=== PATIENT | female | born 1960 | race Caucasian/White ===

== ENCOUNTER 2025-08-12 11:53 | Inpatient (IN) | payer OTHER, MEDICAID ==
[~2025-08-12] VITALS: Ht 162.6 cm; Wt 54.4 kg
[2025-08-12 11:59] VITALS: O2SAT 97
[2025-08-12] MEDS: SODIUM CHLORIDE 0.9% (SEPSIS BOLUS) IV ONE (12:35)
[2025-08-12] MEDS: ONDANSETRON HCL 4MG/2ML INJ IV ONE (12:52)
[2025-08-12] MEDS: CEFTRIAXONE 1GM/50ML 50 ML IV ONE (12:52)
[2025-08-12 12:53] LABS: HEMATOCRIT. 35.7 % (36.0-48.0); HEMOGLOBIN. 11.6 g/dL (12.0-16.0); MEAN PLATELET VOLUME 7.2 fl (7.4-10.4); PLATELET 298 x1000/uL (130-400); RED BLOOD CELL COUNT 4.19 mill/uL (4.2-5.4); RED CELL DISTRIBUTION WIDTH 14.7 % (11.6-14.6)
[2025-08-12 13:10] LABS: TROPONIN I HIGH SENSITIVITY 5 ng/L (3.0-34)
[2025-08-12 13:12] LABS: CREATININE 0.7 mg/dL (0.6-1.0); UREA NITROGEN BLOOD 11 mg/dL (9-23)
[2025-08-12 13:14] LABS: ASPARTATE AMINOTRANSFERASE 44 IU/L (<34); BILIRUBIN DIRECT 0.2 mg/dL (<=3.0); BILIRUBIN TOTAL 1.0 mg/dL (0.1-1.0); PROTEIN TOTAL 7.3 g/dL (6.0-8.3)
[2025-08-12 13:27] LABS: INR 1.0
[2025-08-12] MEDS: ACETAMINOPHEN 325MG TABLET PO ONE (13:48)
[2025-08-12 13:53] LABS: BAND% 21.0 % (1.0-6.0); LYMPHOCYTES % MANUAL 5.0 % (20.0-60.0); MONOCYTES % MANUAL 4.0 % (2.0-8.0); NEUTROPHILS % MANUAL 70.0 % (45.0-75.0); PLATELET ESTIMATE NORMAL
[2025-08-12] MEDS ORDERED: DEXTROSE 50% WATER 50ML SYRINGE IV PRN (14:15)
[2025-08-12] MEDS ORDERED: ACETAMINOPHEN 325MG TABLET PO PRN ×2 (14:15)
[2025-08-12] MEDS ORDERED: IPRATROPIUM/ALBUTEROL 0.5-3(2.5)MG/3ML NEB HHN PRN (14:15)
[2025-08-12] MEDS ORDERED: ONDANSETRON HCL 4MG/2ML INJ IV PRN (14:15)
[2025-08-12] MEDS ORDERED: VANCOMYCIN 1.5GM PMX (XELLIA) 300 ML IV SCH (15:00)
[2025-08-12] MEDS ORDERED: LEVOFLOXACIN 750MG PREMIX 150 ML IV SCH (15:00)
[2025-08-12] MEDS ORDERED: MAGNESIUM 2 G PREMIX 50 ML IV SCH (15:00)
[2025-08-12] MEDS ORDERED: POTASSIUM CHLORIDE 20MEQ TABLET SR PO SCH (15:00)
[2025-08-12] MEDS ORDERED: MIDODRINE HCL 5MG TABLET PO SCH (15:30)
[2025-08-12] MEDS: SODIUM CHLORIDE 0.9% 1,000 ML IV ONE (15:30)
[2025-08-12] MEDS: SODIUM CHLORIDE 0.9% 1,000 ML IV SCH (15:34)
[2025-08-12] MEDS ORDERED: CEFEPIME 2GM IN DEXT 5% 100ML IV SCH (16:15)
[2025-08-12] MEDS ORDERED: AZITHROMYCIN 500MG/250ML 250 ML IV SCH (17:00)
[2025-08-12 17:27] LABS: CLARITY URINE CLEAR (CLEAR); COLOR URINE YELLOW (YELLOW); GLUCOSE URINE NEGATIVE (NEGATIVE); KETONES URINE NEGATIVE (NEGATIVE); LEUKOCYTE ESTERASE URINE 1+ (NEGATIVE); NITRITE URINE NEGATIVE (NEGATIVE); OCCULT BLOOD URINE NEGATIVE (NEGATIVE); PH URINE 5.5 (4.5-8.0); PROTEIN URINE NEGATIVE (NEGATIVE); SPECIFIC GRAVITY URINE 1.005 (1.005-1.030); UROBILINOGEN URINE 0.2 E.U./dL (0.2-1.0)
[2025-08-12 17:34] LABS: *AMPHETAMINES SCREEN URINE NEGATIVE (NEGATIVE); *BARBITURATES SCREEN URINE NEGATIVE (NEGATIVE); *BENZODIAZEPINES SCREEN URINE NEGATIVE (NEGATIVE); *COCAINE SCREEN URINE NEGATIVE (NEGATIVE); METHADONE URINE SCREEN NEGATIVE (NEGATIVE)
[2025-08-12 17:35] LABS: CANNABINOID URINE SCREEN NEGATIVE (NEGATIVE); ECSTASY MDMA SCREEN URINE NEGATIVE (NEGATIVE); OPIATES URINE SCREEN NEGATIVE (NEGATIVE); PHENCYCLIDINE URINE SCREEN NEGATIVE (NEGATIVE)
[2025-08-12 17:52] LABS: BACTERIA URINE NONE SEEN; RBC URINE NONE SEEN /hpf (0-2); SQUAMOUS EPITHELIAL CELL URINE NONE SEEN /lpf (RARE/1+)
[2025-08-12 18:20] VITALS: BP 94/54; PULSE 98; RESP 13; TEMP 36.1; O2SAT 96
[2025-08-12 20:00] VITALS: BP 101/61; PULSE 100; RESP 18; TEMP 36.9; TEMP 36.9184; O2SAT 99
[2025-08-12] MEDS: INSULIN LISPRO 100 UNITS/ML SUBCUT SCH (21:00)
[2025-08-12] MEDS: BLOOD SUGAR DIAGNOSTIC STRIP TEST SCH (21:00)
[2025-08-13] VITALS: BP 107/53; PULSE 95; RESP 20; TEMP 39.9; O2SAT 98
[2025-08-13] MEDS: CEFEPIME 2GM PREMIX 100ML IV SCH (02:13)
[2025-08-13] MEDS: VANCOMYCIN 500 MG in DEXT 5% WATER 100 ML IV SCH (02:14)
[2025-08-13 04:00] VITALS: BP 116/68; PULSE 84; RESP 18; TEMP 38.2; O2SAT 97
[2025-08-13 08:00] VITALS: BP 120/55; PULSE 90; RESP 18; TEMP 38; O2SAT 97
[2025-08-13] MEDS: PANTOPRAZOLE SODIUM 40 MG/VIAL IV SCH (09:00)
[2025-08-13] MEDS: VANCOMYCIN 500MG PREMIX 100 ML IV SCH (11:34)
[2025-08-13 12:00] VITALS: BP 106/50; PULSE 84; RESP 18; TEMP 37.5; O2SAT 97
[2025-08-13 13:22] LABS: HEMATOCRIT. 29.0 % (36.0-48.0); HEMOGLOBIN. 9.5 g/dL (12.0-16.0); MEAN PLATELET VOLUME 8.3 fl (7.4-10.4); PLATELET 244 x1000/uL (130-400); RED BLOOD CELL COUNT 3.41 mill/uL (4.2-5.4); RED CELL DISTRIBUTION WIDTH 15.1 % (11.6-14.6)
[2025-08-13 13:57] LABS: CREATININE 0.6 mg/dL (0.6-1.0)
[2025-08-13 13:58] LABS: LDL CHOLESTEROL 58 mg/dL (5-100); TRIGLYCERIDE 100 mg/dL (0-150); UREA NITROGEN BLOOD 8 mg/dL (9-23)
[2025-08-13 13:59] LABS: ASPARTATE AMINOTRANSFERASE 61 IU/L (<34); BILIRUBIN DIRECT 0.2 mg/dL (<=3.0); BILIRUBIN TOTAL 0.6 mg/dL (0.1-1.0)
[2025-08-13 14:00] LABS: T4 FREE 1.00 ng/dL (0.89-1.76)
[2025-08-13 14:40] LABS: PROTEIN TOTAL 5.3 g/dL (6.0-8.3)
[2025-08-13] MEDS: ENOXAPARIN 40MG/0.4ML SYR SUBCUT SCH (15:00)
[2025-08-13 15:27] LABS: BAND% 22.0 % (1.0-6.0); LYMPHOCYTES % MANUAL 2.0 % (20.0-60.0); MONOCYTES % MANUAL 2.0 % (2.0-8.0); NEUTROPHILS % MANUAL 74.0 % (45.0-75.0); PLATELET ESTIMATE NORMAL
[2025-08-13 16:00] VITALS: BP 107/54; PULSE 89; RESP 17; TEMP 37.2; O2SAT 100
[2025-08-13] MEDS: LEVOFLOXACIN 500MG PREMIX 100 ML IV SCH (17:51)
[2025-08-13 20:00] VITALS: BP 105/57; PULSE 91; RESP 18; TEMP 36.7; O2SAT 95
[2025-08-13] MEDS ORDERED: PIPERACILLIN/TAZO 3.375G/50ML 50 ML IV SCH (21:00)
[2025-08-14] VITALS: BP 95/56; PULSE 75; RESP 19; TEMP 36.7; O2SAT 98
[2025-08-14 04:00] VITALS: BP 118/64; PULSE 72; RESP 18; TEMP 36.6; O2SAT 97
[2025-08-14 08:08] VITALS: BP 122/76; PULSE 74; RESP 18; TEMP 37; O2SAT 97
[2025-08-14 09:06] LABS: INFLUENZA TYPE A Presumptive Negative (Pres. Neg.)
[2025-08-14 09:07] LABS: INFLUENZA TYPE B Presumptive Negative (Pres. Neg.); RESPIRATORY SYNCYTIAL VIRUS Not Detected (Not Detectd)
[2025-08-14 10:00] LABS: BASOPHILS % 0.2 % (0.0-2.0); EOSINOPHILS % 0.3 % (0.0-5.0); HEMATOCRIT. 30.1 % (36.0-48.0); HEMOGLOBIN. 9.7 g/dL (12.0-16.0); LYMPHOCYTES % 7.1 % (20.0-50.0); MEAN PLATELET VOLUME 8.2 fl (7.4-10.4); MONOCYTES % 4.6 % (2.0-8.0); NEUTROPHILS % 87.8 % (40.0-76.0); PLATELET 213 x1000/uL (130-400); RED BLOOD CELL COUNT 3.53 mill/uL (4.2-5.4); RED CELL DISTRIBUTION WIDTH 15.3 % (11.6-14.6)
[2025-08-14 10:24] LABS: CREATININE 0.6 mg/dL (0.6-1.0)
[2025-08-14 10:25] LABS: UREA NITROGEN BLOOD 6 mg/dL (9-23)
[2025-08-14 12:10] VITALS: BP 108/48; PULSE 70; RESP 18; TEMP 36.3; O2SAT 96
[2025-08-14] MEDS: POTASSIUM CHLORIDE 20MEQ TABLET SR PO SCH (14:11)
[2025-08-14 15:59] VITALS: BP 132/72; PULSE 72; RESP 16; TEMP 36.3; O2SAT 98
[2025-08-14 20:00] VITALS: BP 116/70; PULSE 78; RESP 16; TEMP 36.4; O2SAT 96
[2025-08-14] MEDS: CLINDAMYCIN 600MG PREMIX 50 ML IV SCH (20:02)
[2025-08-15] VITALS: BP 128/63; PULSE 65; RESP 16; TEMP 36.2; O2SAT 97
[2025-08-15 04:00] VITALS: BP 137/65; PULSE 72; RESP 16; TEMP 37.1; O2SAT 96
[2025-08-15 09:43] LABS: BASOPHILS % 0.4 % (0.0-2.0); EOSINOPHILS % 1.2 % (0.0-5.0); HEMATOCRIT. 29.5 % (36.0-48.0); HEMOGLOBIN. 10.1 g/dL (12.0-16.0); LYMPHOCYTES % 13.3 % (20.0-50.0); MEAN PLATELET VOLUME 8.3 fl (7.4-10.4); MONOCYTES % 6.1 % (2.0-8.0); NEUTROPHILS % 79.0 % (40.0-76.0); PLATELET 236 x1000/uL (130-400); RED BLOOD CELL COUNT 3.52 mill/uL (4.2-5.4); RED CELL DISTRIBUTION WIDTH 15.5 % (11.6-14.6)
[2025-08-15 09:59] LABS: CREATININE 0.5 mg/dL (0.6-1.0); UREA NITROGEN BLOOD < 5 mg/dL (9-23)
[2025-08-15 12:10] VITALS: BP 144/84; PULSE 96; RESP 18; TEMP 37.3; O2SAT 100
[2025-08-15 13:29] VITALS: BP 138/86; PULSE 82; RESP 18; TEMP 36.4; O2SAT 98
[2025-08-15 16:06] VITALS: BP 122/56; PULSE 62; RESP 18; TEMP 36.9; O2SAT 99
[2025-08-15] MEDS: CEFTRIAXONE 2GM/50ML 50 ML IV SCH (17:02)
[2025-08-15 20:00] VITALS: BP 108/72; PULSE 67; RESP 18; TEMP 36.4; O2SAT 99
[2025-08-16] VITALS: BP 121/55; PULSE 61; RESP 18; TEMP 36.2; O2SAT 97
[2025-08-16 04:00] VITALS: BP 137/61; PULSE 63; RESP 18; TEMP 36.8; O2SAT 97
[2025-08-16 08:00] VITALS: BP 120/75; PULSE 70; RESP 18; TEMP 36.6; O2SAT 98
[2025-08-16 12:00] VITALS: BP 115/69; PULSE 62; RESP 18; TEMP 36.6; O2SAT 97
[2025-08-16 16:00] VITALS: BP 127/71; PULSE 74; RESP 16; TEMP 36.7; O2SAT 97
[2025-08-16 20:00] VITALS: BP 163/72; PULSE 60; RESP 18; TEMP 36.7; O2SAT 97
[2025-08-17] VITALS: BP 108/63; PULSE 61; RESP 18; TEMP 36.2; O2SAT 96
[2025-08-17 04:00] VITALS: BP 132/55; PULSE 61; RESP 19; TEMP 37.3; O2SAT 97
[2025-08-17 08:00] VITALS: BP 126/61; PULSE 63; RESP 16; TEMP 36.5; O2SAT 99
[2025-08-17 09:39] LABS: HEMATOCRIT. 34.4 % (36.0-48.0); HEMOGLOBIN. 11.7 g/dL (12.0-16.0); MEAN PLATELET VOLUME 7.8 fl (7.4-10.4); PLATELET 365 x1000/uL (130-400); RED BLOOD CELL COUNT 4.09 mill/uL (4.2-5.4); RED CELL DISTRIBUTION WIDTH 15.0 % (11.6-14.6)
[2025-08-17] MEDS ORDERED: LIDOCAINE HCL 1% 10 MG/ML 10ML VIAL ONE (09:52)
[2025-08-17 10:01] LABS: CREATININE 0.5 mg/dL (0.6-1.0)
[2025-08-17 10:02] LABS: UREA NITROGEN BLOOD 7 mg/dL (9-23)
[2025-08-17 12:00] VITALS: BP 134/66; PULSE 65; RESP 14; TEMP 36.8; O2SAT 100
[2025-08-17 16:00] VITALS: BP 129/70; PULSE 61; RESP 16; TEMP 36.6; O2SAT 97
[2025-08-17] MEDS ORDERED: LINE600T14 MT (18:54)
[2025-08-17 20:00] VITALS: BP 118/46; PULSE 72; RESP 18; TEMP 36.4; O2SAT 98
[2025-08-17] MEDS: POTASSIUM CHLORIDE 20MEQ TABLET SR PO SCH (21:03)
[2025-08-17 21:35] LABS: EOSINOPHILS % MANUAL 3.0 % (0.0-5.0); LYMPHOCYTES % MANUAL 29.0 % (20.0-60.0); MONOCYTES % MANUAL 13.0 % (2.0-8.0); NEUTROPHILS % MANUAL 55.0 % (45.0-75.0); PLATELET ESTIMATE NORMAL
[2025-08-18] VITALS: BP 121/63; PULSE 70; RESP 19; TEMP 36.5; O2SAT 97
[2025-08-18 04:00] VITALS: BP 116/52; PULSE 66; RESP 17; TEMP 36.4; O2SAT 97
[2025-08-18 07:58] VITALS: BP 117/54; PULSE 65; RESP 17; TEMP 36.5; O2SAT 98
[2025-08-18 12:00] VITALS: BP 124/63; PULSE 74; RESP 14; TEMP 36.7; O2SAT 96
[2025-08-18 14:46] VITALS: BP 124/63; PULSE 74; TEMP 98
== END 2025-08-18 15:05 | disposition home health service (06) | DRG 871 ==
LOC: ER 11:53 → 8WST 14:02 → EDBEDREQ 14:31 → EDBEDREQTM 14:31 → EDBEDREQSVC 14:31 → ENRESERV 17:38
PROVIDERS: ADMIT Internal Medicine; ATTEND Internal Medicine
PROC: 02HV33Z Insertion of Infusion Device into Superior Vena Cava, Percutaneous Approach (ICD-10-PCS; principal; 2025-08-17)
PROC: B548ZZA Ultrasonography of Superior Vena Cava, Guidance (ICD-10-PCS; 2025-08-17)
DX: A40.0 Sepsis due to streptococcus, group A (principal); G92.8 Other toxic encephalopathy; J18.9 Pneumonia, unspecified organism; N39.0 Urinary tract infection, site not specified; G93.40 Encephalopathy, unspecified; E11.9 Type 2 diabetes mellitus without complications; I10 Essential (primary) hypertension; Z79.84 Long term (current) use of oral hypoglycemic drugs; Z79.899 Other long term (current) drug therapy; Z88.0 Allergy status to penicillin
CPT/HCPCS: 36415; 36573; 71045; 74176; 80048; 80061; 80076; 80202; 80305; 81003; 82962; 83036; 83605; 83735; 84145; 84439; 84443; 84484; 85025; 87077; 87186; 87420; 87804; 93005; 93306; 96365; 96375; 97162; 97165; 99291; A4606; C1725; C1769; J0692; J0696; J1650; J1956; J2003; J2405; J2470; J3373; J3490; J7030; J7060